=== PATIENT | female | born 1970 | race African-American/Black ===

== ENCOUNTER 2021-07-31 08:14 | Inpatient (IN) | payer MEDICAID, OTHER ==
[~2021-07-31] VITALS: Ht 177.8 cm; Wt 68.2 kg
[2021-07-31 09:11] LABS: BASOPHILS % 0.4 % (0.0-2.0); EOSINOPHILS % 0.9 % (0.0-5.0); HEMATOCRIT. 41.6 % (36.0-48.0); HEMOGLOBIN. 13.9 g/dL (12.0-16.0); LYMPHOCYTES % 17.1 % (20.0-50.0); MEAN CORPUSCULAR HEMOGLOBIN 24.8 pg (28.0-32.0); MEAN CORPUSCULAR VOLUME 74.1 fL (81.0-99.0); MEAN PLATELET VOLUME 8.4 fl (7.4-10.4); NEUTROPHILS % 74.6 % (40.0-76.0); PLATELET 275 x1000/uL (130-400); RED BLOOD CELL COUNT 5.61 mill/uL (4.2-5.4); RED CELL DISTRIBUTION WIDTH 16.9 % (11.6-14.6)
[2021-07-31 09:21] LABS: CHLORIDE 101 mEq/L (98-107)
[2021-07-31 09:25] LABS: ETHANOL BLOOD < 10 mg/dL
[2021-07-31] MEDS ORDERED: LORAZEPAM 2MG/ML CPJ IV ONE ×2 (10:00→10:30)
[2021-07-31] MEDS ORDERED: LEVETIRACETAM 1000MG PREMIX 100 ML IV ONE (10:00)
[2021-07-31 10:16] LABS: CLARITY URINE TURBID (CLEAR); COLOR URINE YELLOW (YELLOW); KETONES URINE NEGATIVE (NEGATIVE); LEUKOCYTE ESTERASE URINE 1+ (NEGATIVE); NITRITE URINE NEGATIVE (NEGATIVE); OCCULT BLOOD URINE 1+ (NEGATIVE); PH URINE 7.5 (4.5-8.0); PROTEIN URINE 3+ (NEGATIVE); SPECIFIC GRAVITY URINE 1.014 (1.005-1.030); UROBILINOGEN URINE 0.2 E.U./dL (0.2-1.0)
[2021-07-31] MEDS ORDERED: CEFTRIAXONE 1 G PREMIX 50 ML IV ONE (10:45)
[2021-07-31 10:46] LABS: *AMPHETAMINES SCREEN URINE NEGATIVE (NEGATIVE); *BARBITURATES SCREEN URINE NEGATIVE (NEGATIVE); *BENZODIAZEPINES SCREEN URINE NEGATIVE (NEGATIVE); *COCAINE SCREEN URINE NEGATIVE (NEGATIVE); METHADONE URINE SCREEN NEGATIVE (NEGATIVE)
[2021-07-31 10:47] LABS: CANNABINOID URINE SCREEN PRESUMTIVE POSITIVE (NEGATIVE); OPIATES URINE SCREEN NEGATIVE (NEGATIVE); PHENCYCLIDINE URINE SCREEN NEGATIVE (NEGATIVE)
[2021-07-31] MEDS ORDERED: IOHEXOL-350 100 ML BOTTLE ONE (11:53)
[2021-07-31] MEDS: ASPIRIN 81MG TABLET PO SCH (14:00)
[2021-07-31] MEDS ORDERED: LORAZEPAM 2MG/ML CPJ IV NR (21:18)
[2021-07-31] MEDS ORDERED: ONDANSETRON HCL 4MG/2ML INJ IV PRN (21:30)
[2021-07-31] MEDS ORDERED: ACETAMINOPHEN 325MG TABLET PO PRN (21:30)
[2021-07-31] MEDS ORDERED: LEVETIRACETAM 1000MG PREMIX 100 ML IV NR ×2 (21:30→23:45)
[2021-07-31] MEDS: ENOXAPARIN 40MG/0.4ML SYR SUBCUT SCH (21:35)
[2021-07-31 22:20] VITALS: BP 118/79
[2021-07-31 22:24] VITALS: BP 118/79
[2021-08-01] VITALS: BP 159/97
[2021-08-01 04:00] VITALS: BP 137/93
[2021-08-01 08:00] VITALS: BP 143/90
[2021-08-01] MEDS: ASPIRIN 81MG TABLET PO SCH ×2 (08:28→12:01)
[2021-08-01 12:00] VITALS: BP 154/110
[2021-08-01] MEDS: AMLODIPINE 10MG TABLET PO SCH (12:01)
[2021-08-01 16:00] VITALS: BP 134/96
[2021-08-01 20:00] VITALS: BP 154/89
[2021-08-01] MEDS: ENOXAPARIN 40MG/0.4ML SYR SUBCUT SCH (20:17)
[2021-08-01] MEDS ORDERED: AMLO10TA80 PO (20:40)
[2021-08-01] MEDS ORDERED: LORAZEPAM 2MG/ML CPJ IV PRN (21:00)
[2021-08-01] MEDS ORDERED: ATORVASTATIN CALCIUM 40MG TABLET PO SCH (21:00)
[2021-08-01] MEDS ORDERED: ZOLPIDEM TARTRATE 5MG TABLET PO PRN (21:00)
[2021-08-01] MEDS ORDERED: HYDROCODONE/ACETAMINOPHEN 5/325MG TABLET PO PRN (21:00)
[2021-08-01] MEDS ORDERED: NALOXONE HCL 0.4MG/ML VIAL IV PRN (21:30)
[2021-08-02] VITALS (7 sets, daily range): BP systolic 115–157; BP diastolic 88–105
[2021-08-02 07:23] LABS: EOSINOPHILS % 2.3 % (0.0-5.0); HEMATOCRIT. 38.9 % (36.0-48.0); HEMOGLOBIN. 12.9 g/dL (12.0-16.0); LYMPHOCYTES % 35.9 % (20.0-50.0); MEAN CORPUSCULAR HEMOGLOBIN 24.6 pg (28.0-32.0); MEAN CORPUSCULAR VOLUME 74.3 fL (81.0-99.0); MEAN PLATELET VOLUME 8.6 fl (7.4-10.4); MONOCYTES % 9.5 % (2.0-8.0); NEUTROPHILS % 51.3 % (40.0-76.0); PLATELET 299 x1000/uL (130-400); RED BLOOD CELL COUNT 5.24 mill/uL (4.2-5.4); RED CELL DISTRIBUTION WIDTH 16.5 % (11.6-14.6)
[2021-08-02 07:33] LABS: CHLORIDE 101 mEq/L (98-107)
[2021-08-02 07:40] LABS: LDL CHOLESTEROL 165 mg/dL (5-100)
[2021-08-02 07:41] LABS: HDL CHOLESTEROL 61 mg/dL (40-59)
[2021-08-02] MEDS: AMLODIPINE 10MG TABLET PO SCH (09:07)
[2021-08-02] MEDS: ASPIRIN 81MG TABLET PO SCH (09:07)
[2021-08-02] MEDS ORDERED: POTASSIUM CHLORIDE 20MEQ TABLET SR PO NR (12:45)
[2021-08-02] MEDS: HYDRALAZINE HCL 50MG TABLET PO SCH ×2 (13:30→20:26)
[2021-08-02] MEDS ORDERED: CLOPIDOGREL 75MG TABLET PO SCH (16:00)
[2021-08-02] MEDS: ENOXAPARIN 40MG/0.4ML SYR SUBCUT SCH (20:25)
[2021-08-02] MEDS ORDERED: LEVETIRACETAM 500MG TABLET PO SCH (21:00)
[2021-08-02] MEDS ORDERED: ATORVASTATIN CALCIUM 40MG TABLET PO SCH (21:00)
== END 2021-08-02 22:00 | disposition short-term general hospital (02) | DRG 65 ==
LOC: ER 08:33 → EDBEDREQSVC 10:29 → EDBEDREQTM 10:29 → EDBEDREQ 10:29 → EDBEDREQTM 11:36 → EDBEDREQ 11:36 → ENRESERV 20:56 → 5WST 22:02
PROVIDERS: ADMIT Internal Medicine; ATTEND Internal Medicine
PROC: 4A10X4Z Monitoring of Central Nervous Electrical Activity, External Approach (ICD-10-PCS; principal; 2021-08-02)
DX: I63.9 Cerebral infarction, unspecified (principal); I16.1 Hypertensive emergency; G93.40 Encephalopathy, unspecified; I69.354 Hemiplegia and hemiparesis following cerebral infarction affecting left non-dominant side; E04.9 Nontoxic goiter, unspecified; R47.01 Aphasia; R56.9 Unspecified convulsions; F12.90 Cannabis use, unspecified, uncomplicated; I10 Essential (primary) hypertension; R29.718 NIHSS score 18; R47.1 Dysarthria and anarthria
CPT/HCPCS: 36415; 70496; 70498; 70551; 71045; 80048; 80053; 80061; 80305; 80320; 81003; 84484; 85025; 92610; 93005; 95816; 97162; 97166; 97530; 97535; 99291; J0696; J1650; J1953; J2060; Q9967; A4315; G0480

== ENCOUNTER 2022-09-29 19:07 | Emergency (ER) | payer OTHER ==
[~2022-09-29] VITALS: Ht 165.1 cm; Wt 61.0 kg
[~2022-09-29 19:07] MED LIST: AMLO10TA80 PO
[2022-09-29 20:56] LABS: BASOPHILS % 0.6 % (0.0-2.0); EOSINOPHILS % 2.2 % (0.0-5.0); HEMATOCRIT. 36.6 % (36.0-48.0); HEMOGLOBIN. 11.8 g/dL (12.0-16.0); MEAN CORPUSCULAR HEMOGLOBIN 26.4 pg (28.0-32.0); MEAN CORPUSCULAR VOLUME 81.9 fL (81.0-99.0); MEAN PLATELET VOLUME 9.7 fl (7.4-10.4); MONOCYTES % 7.5 % (2.0-8.0); NEUTROPHILS % 42.7 % (40.0-76.0); PLATELET 193 x1000/uL (130-400); RED BLOOD CELL COUNT 4.47 mill/uL (4.2-5.4); RED CELL DISTRIBUTION WIDTH 15.1 % (11.6-14.6)
[2022-09-29 20:58] LABS: CLARITY URINE CLEAR (CLEAR); COLOR URINE YELLOW (YELLOW); KETONES URINE NEGATIVE (NEGATIVE); LEUKOCYTE ESTERASE URINE 1+ (NEGATIVE); NITRITE URINE NEGATIVE (NEGATIVE); OCCULT BLOOD URINE NEGATIVE (NEGATIVE); PROTEIN URINE NEGATIVE (NEGATIVE); SPECIFIC GRAVITY URINE 1.009 (1.005-1.030); UROBILINOGEN URINE 0.2 E.U./dL (0.2-1.0)
[2022-09-29 21:00] LABS: CHLORIDE 104 mEq/L (98-107)
[2022-09-29] MEDS ORDERED: LEVETIRACETAM 500MG TABLET PO ONE (21:00)
[2022-09-29 21:04] LABS: INR 1.1; PROTHROMBIN TIME 11.3 sec (9.6-11.0)
[2022-09-29 21:09] LABS: ETHANOL BLOOD < 10 mg/dL
[2022-09-29] MEDS ORDERED: POTASSIUM CHLORIDE 20MEQ/PACKET PO NR (22:09)
[2022-09-29] MEDS ORDERED: ACETAMINOPHEN 325MG TABLET PO ONE (22:30)
[2022-09-29 23:10] VITALS: BP 142/88
== END 2022-09-29 23:15 | disposition home or self-care (01) ==
LOC: ER 19:07
DX: R56.9 Unspecified convulsions (principal); I10 Essential (primary) hypertension; Z86.73 Personal history of transient ischemic attack (TIA), and cerebral infarction without residual deficits
CPT/HCPCS: 36415; 80053; 80320; 81003; 82962; 85025; 99284; G0480